=== PATIENT | female | born 1975 | race Caucasian/White ===

== ENCOUNTER 2019-07-22 00:25 | Inpatient (IN) | payer OTHER ==
[~2019-07-22] VITALS: Ht 160 cm; Wt 67.6 kg
[2019-07-22 00:33] VITALS: Ht 160 cm; Wt 67.6 kg
[2019-07-22 02:23] LABS: BASOPHIL % 0.1 % (0-2); PLATELET COUNT 302 x10^3mcL (130-400); RED CELL DISTRIBUTION WIDTH 13.4 % (11.5-14.5)
[2019-07-22 02:38] LABS: CARBON DIOXIDE 23.1 mmol/L (21-32); CHLORIDE SERUM 103 mmol/L (98-107); GFR1 > 60 mL/min; GLUCOSE SERUM 147 mg/dL (74-106); POTASSIUM SERUM 3.6 mmol/L (3.5-5.1); SODIUM SERUM 140 mmol/L (136-145)
[2019-07-22 02:42] LABS: ALBUMIN 3.6 g/dL (3.4-5.0); ALKALINE PHOSPHATASE 65 U/L (46-116); ALT/SGPT 75 U/L (14-59); AST/SGOT 95 U/L (15-37); BILIRUBIN TOTAL 0.68 mg/dL (0.20-1.00)
[2019-07-22] MEDS ORDERED: ZESTRIL10 MG PO (05:17)
[2019-07-22] MEDS ORDERED: NASAL MIST126 ML (05:17)
[2019-07-22 08:24] VITALS: BP 108/74
[2019-07-22 11:50] VITALS: BP 108/75
[2019-07-22 12:57] VITALS: BP 108/74
== END 2019-07-22 14:33 | disposition short-term general hospital (02) | DRG 439 ==
LOC: ED 00:25 → MU 04:50
PROVIDERS: ADMIT Hospitalist
DX: K85.10 Biliary acute pancreatitis without necrosis or infection (principal); E87.2 Acidosis; K80.70 Calculus of gallbladder and bile duct without cholecystitis without obstruction; I10 Essential (primary) hypertension; Z90.710 Acquired absence of both cervix and uterus; Z79.899 Other long term (current) drug therapy
CPT/HCPCS: G0378; J2270; J2405; J2543; J3490; J7030; J7042; Q0092